=== PATIENT | female | born 1945 | race Caucasian/White ===

== ENCOUNTER → 2016-10-11 | Outpatient (REF) | payer MEDICARE ==
[2016-10-11 12:09] LABS: FREE T4 1.41 NG/DL (0.76-1.46)
== END ==
LOC: M SFHCCLAY 07:13
PROVIDERS: ATTEND Family Medicine
DX: E03.9 Hypothyroidism, unspecified (principal)

== ENCOUNTER → 2016-11-16 | Outpatient (CLI) | payer MEDICARE ==
--- NOTE | 2016-11-16 10:56 | REPMRS ---
Patient History The patient states she had a clinical breast exam in October 2016. Patient is postmenopausal. Family history of prostate cancer in father at age 80. Digital Mammo Screening Bilat: November 16, 2016 - Exam #: [id number] Bilateral CC and MLO view(s) were taken. Technologist: Malini Bernabe, Technologist Prior study comparison: October 19, 2015, digital bilateral screening mammo, performed at [facility]. August 29, 2012, bilateral mammogram, performed at [facility]. FINDINGS: The breast tissue is heterogeneously dense. This may lower the sensitivity of mammography. There has been no change in the appearance of the mammogram from the prior studies. There is a moderate amount of residual fibroglandular tissue which is fairly symmetric. There is no interval development of dominant mass, areas of architectural distortion, or clustered microcalcification typical of malignancy. ASSESSMENT: BI-RADS/ACR category 1 mammogram. Negative. Recommendation Routine screening mammogram in 1 year (for women over age 40). This mammogram was interpreted with the aid of an FDA-approved computer-aided dectection system. Electronically Signed By: Fausto Sevilla MD 11/16/16 0424
== END ==
LOC: M RAD 09:18
PROVIDERS: ATTEND Family Medicine
DX: Z12.31 Encounter for screening mammogram for malignant neoplasm of breast (principal); R92.8 Other abnormal and inconclusive findings on diagnostic imaging of breast; Z78.0 Asymptomatic menopausal state

== ENCOUNTER → 2017-01-02 | Outpatient (REF) | payer MEDICARE ==
[2017-01-02 11:57] LABS: ALBUMIN 3.4 GM/DL (3.2-5.2); ALBUMIN/GLOBULIN RATIO 1.13 (1.00-1.93); ALKALINE PHOSPHATASE 53 U/L (45-117); ALT/SGPT 23 U/L (12-78); ANION GAP 7 MEQ/L (8-16); AST/SGOT 15 U/L (15-37); BILIRUBIN,TOTAL 0.5 MG/DL (0.2-1.0); BLOOD UREA NITROGEN 13 MG/DL (7-18); CALCIUM LEVEL 8.6 MG/DL (8.8-10.2); CARBON DIOXIDE LEVEL 33 MEQ/L (21-32); CHLORIDE LEVEL 104 MEQ/L (98-107); CHOLESTEROL LEVEL 194 MG/DL (<200); CREATININE FOR GFR 0.88 MG/DL (0.55-1.02); FREE T4 1.27 NG/DL (0.76-1.46); GLOMERULAR FILTRATION RATE > 60.0 (>39); GLUCOSE, FASTING 98 MG/DL (83-110); POTASSIUM SERUM 4.2 MEQ/L (3.5-5.1); SODIUM LEVEL 144 MEQ/L (136-145); TOTAL PROTEIN 6.4 GM/DL (6.4-8.2); TRIGLYCERIDES LEVEL 92 MG/DL (<150)
== END ==
LOC: M SFHCCLAY 08:49
PROVIDERS: ATTEND Family Medicine
DX: E78.2 Mixed hyperlipidemia (principal); E03.9 Hypothyroidism, unspecified

== ENCOUNTER → 2017-10-17 | Outpatient (CLI) | payer MEDICARE | LOC: M CLY 10:28 | DX: R05 Cough (principal) | CPT/HCPCS: 71046; G0463 ==

== ENCOUNTER 2018-01-15 06:21 | Day surgery (SDC) | payer MEDICARE ==
[~2018-01-15 06:21] MED LIST: SLF 3 ML SYR IV; TETRACAINE 0.5% OPHTH SOLN 4ML As Ordered
[2018-01-15] MEDS ORDERED: fentaNYL 100 MCG/2 ML INJECTION (J3010) As Ordered (06:59)
[2018-01-15] MEDS ORDERED: MIDAZOLAM INJ 2 MG/2 ML VIAL (J2250) As Ordered (06:59)
[2018-01-15] MEDS ORDERED: ONDANSETRON 4MG/2ML VIAL (J2405) As Ordered (07:00)
[2018-01-15] MEDS: LIDOCAINE 3.5 % 1ML OPHTH TOPICAL GEL OU (07:15)
[2018-01-15] MEDS: POVIDONE-IODINE 5% OPHTH PREP SOL 30ML As Ordered (09:46)
[2018-01-15] MEDS: LIDOCAINE 2% W/EPIN INJ 20ML **PRES FREE As Ordered (09:46)
[2018-01-15] MEDS: TOBRADEX OPHTH OINT 3.5 GM As Ordered (09:46)
[2018-01-15] MEDS ORDERED: PROPOFOL 200 MG/20 ML VIAL As Ordered (09:48)
[2018-01-15] MEDS: SODIUM BICARBONATE 8.4% INJ 50MEQ 50 ML VIAL XX (10:00)
== END 2018-01-15 10:35 | disposition home or self-care (01) ==
LOC: M SDC 06:21
DX: H02.831 Dermatochalasis of right upper eyelid (principal); H02.834 Dermatochalasis of left upper eyelid; E03.9 Hypothyroidism, unspecified; E04.1 Nontoxic single thyroid nodule; R29.898 Other symptoms and signs involving the musculoskeletal system; M12.9 Arthropathy, unspecified; F41.9 Anxiety disorder, unspecified; Z88.0 Allergy status to penicillin; Z79.899 Other long term (current) drug therapy; Z90.710 Acquired absence of both cervix and uterus; Z92.21 Personal history of antineoplastic chemotherapy; Z72.0 Tobacco use; Z98.51 Tubal ligation status
CPT/HCPCS: 15823

== ENCOUNTER → 2018-02-20 | Outpatient (REF) | payer MEDICARE ==
[2018-02-20 18:14] LABS: THYROID STIMULATING HORMONE 0.116 uIU/ML (0.358-3.740)
== END ==
LOC: M SFHCCLAY 10:12
DX: E03.9 Hypothyroidism, unspecified (principal)
CPT/HCPCS: 84443